=== PATIENT | female | born 1955 | race African-American/Black ===

== ENCOUNTER 2017-02-04 07:08 | Emergency (ER) | payer MEDICAID ==
[~2017-02-04] VITALS: Ht 157.5 cm; Wt 65.0 kg
[~2017-02-04 07:08] MED LIST: AMLO5TAB4 PO; ATOR10TA PO; INSU3INS6 SUBCUT; METF10002 PO; TRAM50TA3 PO
[2017-02-04 08:02] VITALS: BP 180/100
== END 2017-02-04 08:16 | disposition home or self-care (01) ==
LOC: ER 07:49
DX: B86 Scabies (principal); E11.9 Type 2 diabetes mellitus without complications; I10 Essential (primary) hypertension; F17.210 Nicotine dependence, cigarettes, uncomplicated; Z88.5 Allergy status to narcotic agent; Z79.4 Long term (current) use of insulin; Z79.84 Long term (current) use of oral hypoglycemic drugs; Z79.1 Long term (current) use of non-steroidal anti-inflammatories (NSAID)
CPT/HCPCS: 99282